=== PATIENT | male | born 1970 | race Two or more races ===

== ENCOUNTER 2017-06-17 10:06 | Inpatient (IN) | payer MEDICAID ==
[~2017-06-17] VITALS: Ht 175.3 cm; Wt 72.6 kg
[2017-06-17] MEDS ORDERED: VANCOMYCIN 1 GM in IV D5W 250 ML IV ONE (10:30)
[2017-06-17] MEDS ORDERED: PIPERACILLIN /TAZOBACTAM 3.375 G in IV D5W 50 ML IV ONE (10:30)
--- NOTE | 2017-06-17 10:30 | NUR ---
The patient was brought in by his to the emergency department for worsening posterior neck cellulitis; severe posterior neck pain 10 over 10 in severity. The patient denies fever or chills am assessment
[2017-06-17 10:39] LABS: BASOPHILS # (AUTO) 0.5 /CMM (0.0-0.2); EOSINOPHILS % (AUTO) 0.2 % (0.0-6.0); HEMATOCRIT 48 % (39-51); LYMPHOCYTES % (AUTO) 3.9 % (20.0-44.0); MEAN CORPUSCULAR HEMOGLOBIN 33 PG (26.0-33.0); MEAN CORPUSCULAR HGB CONC 35 g/dl (31.0-36.0); MEAN CORPUSCULAR VOLUME 92 fL (80-96); MONOCYTES # (AUTO) 2.2 /CMM (0.1-1.30); MONOCYTES % (AUTO) 8.9 % (2.0-12.0); NEUTROPHILS # (AUTO) 21.3 /CMM (1.8-8.9); PLATELET COUNT (AUTO) 306 /CMM (150-450); RDW COEFFICIENT OF VARIATION 11.3 (11.5-15.0); RED BLOOD CELL COUNT(AUTO) 5.25 MIL/uL (4.5-6.0)
--- NOTE | 2017-06-17 10:46 | NUR ---
JORGE SS by the ER physician; with order for septic workup; blood culture done; antibiotics started
[2017-06-17 10:49] LABS: CALCIUM, SERUM 9.8 mg/dL (8.5-10.1); CARBON DIOXIDE 29 mmol/L (21-32); CHLORIDE 94 mmol/L (98-107); CREATININE 0.7 mg/dL (0.6-1.3); GLUCOSE 328 mg/dL (74-106); POTASSIUM 4.1 mmol/L (3.5-5.1); SODIUM SERUM 132 mmol/L (136-145); UREA NITROGEN, BLOOD 10 mg/dL (7-18)
[2017-06-17 10:54] LABS: INR 0.89 (0.87-1.13)
[2017-06-17 10:55] LABS: ALANINE AMINOTRANSFERASE 22 U/L (12-78); ALBUMIN 3.8 g/dL (3.4-5.0); ALKALINE PHOSPHATASE 120 U/L (46-116); ASPARTATE AMINOTRANSFERASE 14 U/L (15-37); BILIRUBIN,DIRECT 0.2 mg/dL (0.0-0.2); TOTAL PROTEIN, SERUM 8.3 g/dL (6.4-8.2)
[2017-06-17 10:57] LABS: TROPONIN I < 0.017 ng/mL (0.00-0.056)
[2017-06-17] MEDS ORDERED: IOHEXOL-300 100 ML VIAL IV ONE (11:11)
[2017-06-17] MEDS ORDERED: IV NS 0.9% 250 ML IV ONE (11:11)
[2017-06-17] MEDS ORDERED: CT SWABBABLE VALVE TRANS SET 1 EA INFUS.SET MC ONE (11:11)
[2017-06-17 11:48] LABS: BAND % (MANUAL) 6 % (0.0-5.0); LYMPHOCYTES % (MANUAL) 4 % (16-48); MONOCYTES % (MANUAL) 6 % (0-11.0); NEUTROPHILS % (MANUAL) 84 (42-76)
[2017-06-17] MEDS ORDERED: ONDANSETRON HCL/PF 4 MG/2 ML VIAL ONE (12:43)
[2017-06-17] MEDS ORDERED: MORPHINE SULFATE INJ 4 MG/ML DISP.SYRIN ONE (12:43)
[2017-06-17] MEDS ORDERED: MORPHINE SULFATE INJ 2 MG/ML DISP.SYRIN IV ONE (13:00)
[2017-06-17] MEDS ORDERED: ONDANSETRON HCL/PF 4 MG/2 ML VIAL IVP ONE (13:00)
--- NOTE | 2017-06-17 13:23 | NUR ---
MS 89
--- NOTE | 2017-06-17 13:40 | NUR ---
REPORT GIVEN AT BS TO BHUPENDRA NAIR BY BHUPENDRA FLANNERY
[2017-06-17 15:30] VITALS: BP 157/93
[2017-06-17] MEDS ORDERED: Z GUARD REMEDY 2 OZ OINT TP PRN (15:30)
[2017-06-17] MEDS ORDERED: ONDANSETRON HCL/PF 4 MG/2 ML VIAL IVP PRN (15:30)
[2017-06-17] MEDS ORDERED: MAGNESIUM HYDROXIDE 30 ML UDC PO PRN (15:30)
[2017-06-17] MEDS ORDERED: ACETAMINOPHEN 325 MG TABLET PO PRN (15:30)
[2017-06-17] MEDS ORDERED: MAG HYDROX/AL HYDROX/SIMETH 30 ML UDC PO PRN (15:30)
--- NOTE | 2017-06-17 15:30 | NUR ---
RN INITIAL NOTE PATIENT ARRIVES TO [facility] IN ACUTE PAIN RATED AT A 10 OUT OF 10 PATIENT APPEAR TO HAVE POSTERIOR NECK INFLAMMATION AND REDNESS, PATIENT STATES HE HASN'T BEEN ABLE TO EAT IN OVER 5 DAY DUE TO INCREASED PAIN , PATIENT STATES HEADACHE AND BLURRED VISION WELL, PATIENT GIVEN HEATING PAD PRESCRIBED IN THE EMERGENCY DEPARTMENT. PATIENT IS ALERT AND ORIENTED X4 AND ABLE TO MAKE NEEDS KNOWN . PATIENT GLUCOSE LEVEL ASSESSED AND APPEARS TO BE SIGNIFICANTLY ELEVATED RN INFORMED PATIENT ABOUT THE ELEVATION IN BLOOD SUGAR. PATIENT STATES HE HAS NO HISTORY OF DIABETES. PATIENT REQUESTING PAIN MEDICATION HOWEVER PATIENT CURRENTLY HAS NO ORDERS RN CONTACTED MD FOR ORDERS AND TO RELY CRITICAL LAB .
[2017-06-17] MEDS ORDERED: FEE PK DOSING 1 MIN EA MC ONE (15:42)
[2017-06-17] MEDS: HYDROCODONE/APAP 5/325MG 1 EACH TABLET PO PRN (15:42)
[2017-06-17] MEDS: CEFTRIAXONE 1 G in IV D5W 50 ML IV SCH (18:20)
[2017-06-17] MEDS: BLOOD SUGAR DIAGNOSTIC 1 EACH STRIP IN SCH ×2 (18:21→21:53)
[2017-06-17] MEDS: MORPHINE SULFATE INJ 4 MG/ML DISP.SYRIN IV PRN (18:21)
--- NOTE | 2017-06-17 18:55 | NUR ---
RN CLOSING NOTE PATIENT IN BED RESTING COMFORTABLE ALL NEEDS ATTENDED PATIENT AMBULATED TO SHOWER PAIN MEDICATION ADMINISTER PER PATIENT REQUEST , PATIENT ANTIBIOTIC HUNG WITHOUT TISSUE PATIENT ORIENTED TO ROOM AND UPDATED ON PLAN OF CARE INITIAL ASSESSMENT PERFORMED PATIENT STABLE AT THIS TIME NO SOB NOTED , PATIENT AT BEDSIDE. RN WILL ENDORSE CONTINUATION OF CARE TO PM RN
--- NOTE | 2017-06-17 19:35 | NUR ---
MS RN NOTES RECEIVED PT IN BED, AWAKE, A/O X4. AND FRIENDS AT BEDSIDE. VERBALLY RESPONSIVE. NO DISTRESS, NO SOB NOTED AT THIS TIME. RESPIRATION IS EVEN AND UNLABORED. IV SITE ON LAC INTACT AND PATENT , NO S/S OF INFILTRATION NOTED. PT IS AMBULATORY. ALL NEEDS ATTENDEE AND MET. COMFORTABLE VERBALIZED. SAFETY PRECAUTIONS OBSERVED. CALL LIGHT WITHIN REACH. WILL CONT TO MONITOR.
[2017-06-17 20:00] VITALS: BP 149/78
[2017-06-17] MEDS: VANCOMYCIN 1.25 GM in IV D5W 500 ML IV SCH (20:45)
[2017-06-17] MEDS: ZOLPIDEM TARTRATE 5 MG TABLET PO PRN (21:54)
[2017-06-18] MEDS: MORPHINE SULFATE INJ 4 MG/ML DISP.SYRIN IV PRN ×4 (00:11→17:56)
[2017-06-18] MEDS: HYDROCODONE/APAP 5/325MG 1 EACH TABLET PO PRN ×2 (03:18→14:36)
[2017-06-18] MEDS: VANCOMYCIN 1.25 GM in IV D5W 500 ML IV SCH ×3 (04:24→21:13)
--- NOTE | 2017-06-18 06:35 | NUR ---
MS RN NOTES PT IN BED, RESTING COMFORTABLY IN BED, AROUSES EASILY. A/O X4. VERBALLY RESPONSIVE. NO DISTRESS, NO SOB NOTED AT THIS TIME. RESPIRATION IS EVEN AND UNLABORED. IV SITE ON LAC INTACT AND PATENT , NO S/S OF INFILTRATION NOTED. PT IS AMBULATORY. ALL NEEDS ATTENDED AND MET. KEPT COMFORTABLE. NO C/O PAIN OR DISCOMFORT AT THIS TIME. SAFETY PRECAUTIONS OBSERVED. CALL LIGHT WITHIN REACH. WILL ENDORSE TO NEXT SHIFT FOR JESUSITA.
[2017-06-18 06:57] LABS: EOSINOPHILS # (AUTO) 0.1 /CMM (0.0-0.7); EOSINOPHILS % (AUTO) 0.3 % (0.0-6.0); HEMATOCRIT 43 % (39-51); HEMOGLOBIN 14.6 g/dL (13.5-17.5); LYMPHOCYTES # (AUTO) 1.5 /CMM (0.8-4.8); LYMPHOCYTES % (AUTO) 6.4 % (20.0-44.0); MEAN CORPUSCULAR HEMOGLOBIN 33 PG (26.0-33.0); MEAN CORPUSCULAR HGB CONC 34 g/dl (31.0-36.0); MEAN CORPUSCULAR VOLUME 95 fL (80-96); MONOCYTES # (AUTO) 1.8 /CMM (0.1-1.30); MONOCYTES % (AUTO) 7.7 % (2.0-12.0); NEUTROPHILS # (AUTO) 19.7 /CMM (1.8-8.9); NEUTROPHILS % (AUTO) 85.6 % (43.0-81.0); PLATELET COUNT (AUTO) 285 /CMM (150-450); RDW COEFFICIENT OF VARIATION 12.1 (11.5-15.0); RED BLOOD CELL COUNT(AUTO) 4.49 MIL/uL (4.5-6.0)
[2017-06-18 07:30] LABS: BILIRUBIN,TOTAL 0.9 mg/dL (0.2-1.0); CREATININE 0.5 mg/dL (0.6-1.3); TOTAL PROTEIN, SERUM 7.1 g/dL (6.4-8.2)
[2017-06-18] MEDS: BLOOD SUGAR DIAGNOSTIC 1 EACH STRIP IN SCH ×6 (08:09→21:24)
[2017-06-18 09:31] LABS: BAND % (MANUAL) 1 % (0.0-5.0); EOSINOPHILS % (MANUAL) 1 % (0-4); LYMPHOCYTES % (MANUAL) 7 % (16-48); MONOCYTES % (MANUAL) 11 % (0-11.0); NEUTROPHILS % (MANUAL) 80 (42-76)
[2017-06-18] MEDS ORDERED: DEXTROSE 50%-WATER 50 ML DISP.SYRIN IV PRN (13:00)
[2017-06-18] MEDS: METFORMIN 500 MG TABLET PO SCH ×2 (14:26→17:56)
[2017-06-18] MEDS: INSULIN REGULAR, HUMAN 100 UNIT/ML 3 ML VIAL SQ PRN (14:31)
[2017-06-18] MEDS: CEFTRIAXONE 1 G in IV D5W 50 ML IV SCH (17:49)
[2017-06-18] MEDS: *INSULIN REGULAR(HUMULIN R)HUM 100 UNIT/ML VIAL SQ PRN ×2 (18:03→21:22)
--- NOTE | 2017-06-18 18:38 | NUR ---
pt medicated for pain as ordered for c/o pain on posterior neck. posterior neck swelling, redness, warm, tender and hard. will do moist warm compresses as ordered. ambulates when able. blood sugars monitored. insulin sliding scale started as ordered and sugar trending down. bed low and locked. call light within reached. will continue to monitor.
[2017-06-18] MEDS ORDERED: MORPHINE SULFATE INJ 2 MG/ML DISP.SYRIN IV STA (19:14)
[2017-06-18] MEDS ORDERED: LIDOCAINE 1%-EPI 1:200,000 SDV 10 ML VIAL IJ ONE (19:30)
--- NOTE | 2017-06-18 19:43 | NUR ---
DR SAINI DID I AND D POSTERIOR NECK AT BEDSIDE. PT TOLERATED PROCEDURE WELL.
[2017-06-18] MEDS ORDERED: MORPHINE SULFATE INJ 4 MG/ML DISP.SYRIN IV ONE (20:00)
--- NOTE | 2017-06-18 20:32 | NUR ---
MS INITIAL RN NOTES PT IN BED, RESTING COMFORTABLY IN BED, AROUSES EASILY. A/O X4. VERBALLY RESPONSIVE. NO DISTRESS, NO SOB NOTED AT THIS TIME. RESPIRATION IS EVEN AND UNLABORED. IV SITE ON LAC INTACT AND PATENT , NO S/S OF INFILTRATION NOTED. PT IS AMBULATORY. ALL NEEDS ATTENDED AND MET. KEPT COMFORTABLE. NO C/O PAIN OR DISCOMFORT AT THIS TIME. SAFETY PRECAUTIONS OBSERVED. CALL LIGHT WITHIN REACH.
[2017-06-19] MEDS: HYDROCODONE/APAP 5/325MG 1 EACH TABLET PO PRN ×5 (01:14→23:32)
[2017-06-19] MEDS: ZOLPIDEM TARTRATE 5 MG TABLET PO PRN ×2 (01:16→23:33)
[2017-06-19] MEDS: VANCOMYCIN 1.25 GM in IV D5W 500 ML IV SCH ×3 (05:17→19:53)
--- NOTE | 2017-06-19 06:50 | NUR ---
RN MS CLOSING NOTES PT STABLE, SEEN BY DR PARVEEN Thompson, WOUND CX COLLECTED . WILL ENDORSE TO AM SHIFT TO F/U ON RESULTS.
[2017-06-19 08:00] VITALS: BP 140/89
[2017-06-19 08:05] LABS: CALCIUM, SERUM 9.5 mg/dL (8.5-10.1); CREATININE 0.5 mg/dL (0.6-1.3); POTASSIUM 3.6 mmol/L (3.5-5.1)
[2017-06-19] MEDS: BLOOD SUGAR DIAGNOSTIC 1 EACH STRIP IN SCH ×4 (08:18→22:40)
[2017-06-19] MEDS: METFORMIN 500 MG TABLET PO SCH ×2 (08:18→17:10)
[2017-06-19] MEDS: INSULIN REGULAR, HUMAN 100 UNIT/ML 3 ML VIAL SQ PRN ×2 (08:29→12:31)
--- NOTE | 2017-06-19 11:39 | NUR ---
MS RN NOTES VANCO IV STARTED. PRIMARY SN TO FOLLOW UP.
[2017-06-19 13:23] LABS: BASOPHILS # (AUTO) 0.1 /CMM (0.0-0.2); BASOPHILS % (AUTO) 0.2 % (0.0-2.0); EOSINOPHILS % (AUTO) 0.2 % (0.0-6.0); HEMATOCRIT 43 % (39-51); HEMOGLOBIN 14.9 g/dL (13.5-17.5); LYMPHOCYTES # (AUTO) 1.4 /CMM (0.8-4.8); LYMPHOCYTES % (AUTO) 5.2 % (20.0-44.0); MEAN CORPUSCULAR HEMOGLOBIN 32 PG (26.0-33.0); MEAN CORPUSCULAR HGB CONC 34 g/dl (31.0-36.0); MEAN CORPUSCULAR VOLUME 94 fL (80-96); MONOCYTES # (AUTO) 1.7 /CMM (0.1-1.30); MONOCYTES % (AUTO) 6.3 % (2.0-12.0); NEUTROPHILS # (AUTO) 23.2 /CMM (1.8-8.9); NEUTROPHILS % (AUTO) 88.1 % (43.0-81.0); PLATELET COUNT (AUTO) 315 /CMM (150-450); RED BLOOD CELL COUNT(AUTO) 4.61 MIL/uL (4.5-6.0); WHITE BLOOD COUNT (AUTO) 26.3 K/uL (4.3-11.0)
[2017-06-19] MEDS ORDERED: IV 1/2NS 1000 ML 1,000 ML IV PRN (13:30)
[2017-06-19] MEDS: CEFTRIAXONE 1 G in IV D5W 50 ML IV SCH (16:10)
--- NOTE | 2017-06-19 16:10 | NUR ---
MS RN NOTES ROCEPHIN IV STARTED. PRIMARY NURSE TO FOLLOW UP.
[2017-06-19] MEDS: LACTOBACILLUS RHAMNOSUS GG 1 EACH CAP.SPRINK PO SCH (17:10)
--- NOTE | 2017-06-19 19:20 | NUR ---
MS COLTON CLOSING NOTES, PATIENT ALERT X4, AMBULATING, CALL LIGHT IN REACH AND ALL NEEDS ATTENDED. REQUESTED NORCO 5MG X2 WITH BURNING RADIATING PAIN IN HIS NECK. NO SOB. WILL ENDORSE TO NEXT GEOMETRICIAN TO CONTINUE TO MONITOR.
[2017-06-19] MEDS: MORPHINE SULFATE INJ 4 MG/ML DISP.SYRIN IV PRN (19:58)
[2017-06-19 20:00] VITALS: BP 137/91
--- NOTE | 2017-06-19 22:00 | NUR ---
PT SEEN BY HALINA WOUND NURSE WITH ORDER FOR KATY GIUSEPPE. ORDER CARRIED OUT , OLD DRESSING REMOVED, AND NEW DRESSING APPLIED.
[2017-06-19] MEDS: *INSULIN REGULAR(HUMULIN R)HUM 100 UNIT/ML VIAL SQ PRN (22:45)
[2017-06-19] MEDS ORDERED: DAKINS QUARTER STRENGTH (0.125%) 480 ML BOTTLE ONE (22:59)
[2017-06-19] MEDS: DAKINS QUARTER STRENGTH (0.125%) 480 ML BOTTLE TOP SCH (23:06)
[2017-06-20] MEDS: VANCOMYCIN 1.25 GM in IV D5W 500 ML IV SCH ×3 (04:43→20:49)
[2017-06-20] MEDS: HYDROCODONE/APAP 5/325MG 1 EACH TABLET PO PRN ×5 (04:57→23:56)
[2017-06-20 07:12] LABS: CALCIUM, SERUM 8.9 mg/dL (8.5-10.1); CREATININE 0.5 mg/dL (0.6-1.3); POTASSIUM 3.2 mmol/L (3.5-5.1)
--- NOTE | 2017-06-20 07:53 | NUR ---
RN NOTES RECEIVED PT IN BED, RESTING COMFORTABLY A/O X4. VERBALLY RESPONSIVE, AMBULATORY. NOT IN ANY FORM OF DISTRESS, NO SOB, RESPIRATION IS EVEN AND UNLABORED. DENIES PAIN OR DISCOMFORT AT THIS TIME. WOUND DRESSED TO POSTERIOR NECK BY PREVIOUS SHIFT. IV SITE TO LAC INTACT AND PATENT. SAFETY PRECAUTIONS OBSERVED. CALL LIGHT WITHIN REACH. WILL CONTINUE TO MONITOR.
[2017-06-20 08:00] VITALS: BP 140/89
[2017-06-20] MEDS: METFORMIN 500 MG TABLET PO SCH ×2 (08:36→17:02)
[2017-06-20] MEDS: LACTOBACILLUS RHAMNOSUS GG 1 EACH CAP.SPRINK PO SCH ×2 (08:36→17:02)
[2017-06-20] MEDS: BLOOD SUGAR DIAGNOSTIC 1 EACH STRIP IN SCH ×4 (08:37→21:02)
[2017-06-20] MEDS: DAKINS QUARTER STRENGTH (0.125%) 480 ML BOTTLE TOP SCH (08:38)
[2017-06-20 08:53] LABS: BASOPHILS % (AUTO) 0.2 % (0.0-2.0); EOSINOPHILS # (AUTO) 0.1 /CMM (0.0-0.7); EOSINOPHILS % (AUTO) 0.8 % (0.0-6.0); HEMATOCRIT 44 % (39-51); LYMPHOCYTES # (AUTO) 1.1 /CMM (0.8-4.8); LYMPHOCYTES % (AUTO) 7.8 % (20.0-44.0); MEAN CORPUSCULAR HEMOGLOBIN 32 PG (26.0-33.0); MEAN CORPUSCULAR HGB CONC 34 g/dl (31.0-36.0); MEAN CORPUSCULAR VOLUME 94 fL (80-96); MONOCYTES # (AUTO) 1.5 /CMM (0.1-1.30); NEUTROPHILS % (AUTO) 80.2 % (43.0-81.0); PLATELET COUNT (AUTO) 329 /CMM (150-450); RED BLOOD CELL COUNT(AUTO) 4.67 MIL/uL (4.5-6.0); WHITE BLOOD COUNT (AUTO) 13.7 K/uL (4.3-11.0)
[2017-06-20] MEDS ORDERED: PIPERACILLIN /TAZOBACTAM 4.5 G in IV D5W 50 ML IV SCH (09:00)
[2017-06-20] MEDS: PIPERACILLIN /TAZOBACTAM 3.375 G in IV D5W 50 ML IV SCH ×3 (09:12→22:34)
[2017-06-20] MEDS: *INSULIN REGULAR(HUMULIN R)HUM 100 UNIT/ML VIAL SQ PRN ×2 (09:13→12:19)
[2017-06-20] MEDS: glipiZIDE 5 MG TABLET PO SCH ×2 (09:31→17:02)
[2017-06-20] MEDS ORDERED: POTASSIUM CHLORIDE 20 MEQ TAB.PRT.SR PO ONE (11:00)
--- NOTE | 2017-06-20 11:59 | NUR ---
MS/RN NOTES PATIENT POSITIVE FOR STAPH COCC OF NECK WOUND. PATIENT RECEIVING SCHEDULED ANTIBIOTICS.
[2017-06-20] MEDS: INSULIN REGULAR, HUMAN 100 UNIT/ML 3 ML VIAL SQ PRN ×2 (18:23→21:11)
--- NOTE | 2017-06-20 19:00 | NUR ---
RN NOTES A/O X 4 AWAKE IN BED, PT IN STABLE CONDITION, NO S/S OF DISTRESS. SAFETY MEASURES ARE IN PLACE, CALL LIGHT IS IN REACH. WILL CONTINUE TO MONITOR.
--- NOTE | 2017-06-20 19:14 | NUR ---
MS/RN NOTES PATIENT RESTING IN BED COMFORTABLY, ALL DUE MEDICATIONS GIVEN, ALL NEEDS MET AND ATTENDED, WOUND CARE OF THE POST NECK PERFORMED ORDERED. IV ANTIBIOTICS GIVEN FAS SCHEDULED. PATIENT AMBULATORY AND INDEPENDENT IN SELF CARE. DIABETES MANAGEMENT WITH ACHS ACCUCHEKCS AND HYPOGLYCEMICS. PATIENT COMPLIANT WITH CARE, INSTRUCTED ON NEW DIABETES DISEASE, CARE AND MANAGEMENT. PAIN MANAGED WITH NORCO EVERY 4 HOURS PRN. WILL ENDORSE CARE TO TELEVISION OPERATOR FOR JESUSITA
[2017-06-20 20:00] VITALS: BP 136/95
[2017-06-20] MEDS: ZOLPIDEM TARTRATE 5 MG TABLET PO PRN (20:55)
--- NOTE | 2017-06-20 21:15 | NUR ---
MS RN NOTES ACCUCHECK WAS TAKEN 189 MG/DL PT WAS GIVEN 3 UNITS OF INSULIN R ORDERED WITNESSED BY 1 RN
[2017-06-21] MEDS: *INSULIN REGULAR(HUMULIN R)HUM 100 UNIT/ML VIAL SQ PRN (02:02)
[2017-06-21] MEDS: PIPERACILLIN /TAZOBACTAM 3.375 G in IV D5W 50 ML IV SCH ×2 (03:34→08:08)
[2017-06-21 04:00] VITALS: BP 137/89
[2017-06-21] MEDS: HYDROCODONE/APAP 5/325MG 1 EACH TABLET PO PRN ×3 (04:00→12:11)
[2017-06-21] MEDS: VANCOMYCIN 1.25 GM in IV D5W 500 ML IV SCH (04:02)
--- NOTE | 2017-06-21 06:31 | NUR ---
MS RN CLOSING NOTES PT COMFORTABLY ASLEEP AND EASILY AWAKEN, TOLERATING ROOM AIR 02 SAT 99% IN STABLE CONDITION. RESPIRATION EVEN AND UNLABORED. KEPT CLEAN AND DRY AND COMFORTABLE, ALL NURSING CARE RENDERED. NEEDS ATTENDED AND ANTICIPATED, FREQUENT VISUAL CHECK DONE FOR SAFETY EVERY 2 HOURS. TX ORDERED, GOOD SKIN CARE PROVIDED. ON LOW BED AT ALL TIMES TO ENSURE SAFETY. SAFE HAZARD FREE ENVIRONMENT PROVIDED. CALL LIGHT WITHIN EASY TO REACH. WILL ENDORSE NEXT SHIFT CONTINUITY OF CARE.
[2017-06-21 06:53] LABS: CALCIUM, SERUM 8.9 mg/dL (8.5-10.1); CREATININE 0.6 mg/dL (0.6-1.3); POTASSIUM 3.7 mmol/L (3.5-5.1)
--- NOTE | 2017-06-21 07:15 | NUR ---
RN OPENING NOTES RECEIVED PT. IN BED A&OX4. BREATHING UNLABORED, AND EVENLY ON ROOM AIR. NO S/S OF ACUTE DISTRESS. IV FLUIDS RUNNING AT 125 ML/HR. BED IS IN LOWEST AND LOCKED POSITION. 2 SIDE RAILS UP, AND INSTRUCTED PT. TO USE CALL LIGHT FOR ASSISTANCE. ALL NEEDS MET. WILL CONTINUE TO ASSESS AND MONITOR.
[2017-06-21] MEDS: BLOOD SUGAR DIAGNOSTIC 1 EACH STRIP IN SCH ×2 (07:26→12:05)
[2017-06-21] MEDS: glipiZIDE 5 MG TABLET PO SCH (07:27)
[2017-06-21] MEDS: INSULIN REGULAR, HUMAN 100 UNIT/ML 3 ML VIAL SQ PRN ×2 (07:30→12:07)
[2017-06-21 08:00] VITALS: BP 140/93
[2017-06-21] MEDS: LACTOBACILLUS RHAMNOSUS GG 1 EACH CAP.SPRINK PO SCH (08:07)
[2017-06-21] MEDS: METFORMIN 500 MG TABLET PO SCH (08:07)
[2017-06-21] MEDS: DAKINS QUARTER STRENGTH (0.125%) 480 ML BOTTLE TOP SCH (08:08)
[2017-06-21] MEDS ORDERED: SULFAMETH/TRIMETH 800/160 MG 1 UDTAB TABLET PO SCH (12:16)
--- NOTE | 2017-06-21 14:00 | NUR ---
RN NOTES WOUND CARE PERFORMED TO POSTERIOR NECK WOUND PER MD ORDERS. PT. TOLERATED PROCEDURE WELL.
--- NOTE | 2017-06-21 16:10 | NUR ---
ADULT SCHOOL TEACHER NOTES PT. WAS DISCHARGED IN MEDICALLY STABLE CONDITION. PT. GOING HOME WITH FAMILY BY PRIVATE CARE. DISCHARGE INSTRUCTIONS, AND EDUCATION WAS PROVIDED, AND PT. VERBALIZED UNDERSTANDING. IV WAS REMOVED, AND ID BAND WITHOUT COMPLICATIONS. BELONGINGS LIST WAS CHECKED, AND SIGNED. NEW MEDICATION PRESCRIPTION LIST WAS PROVIDED, AND EXPLAINED TO PT., AND PT. VERBALIZED UNDERSTANDING. DIABETES EDUCATION WAS PROVIDED AT BEDSIDE, AND PT. VERBALIZED UNDERSTANDING. DISCHARGE PACKET WAS GIVEN, AND ALL QUESTIONS ANSWERED.
== END 2017-06-21 16:45 | disposition home or self-care (01) | DRG 364 ==
LOC: ER 10:10 → MEDSG1 13:53
PROVIDERS: ADMIT Internal Medicine; ATTEND Internal Medicine
PROC: 0W963ZZ Drainage of Neck, Percutaneous Approach (ICD-10-PCS; principal; 2017-06-18)
DX: L03.221 Cellulitis of neck (principal); E87.1 Hypo-osmolality and hyponatremia; E88.09 Other disorders of plasma-protein metabolism, not elsewhere classified; F17.210 Nicotine dependence, cigarettes, uncomplicated; D72.829 Elevated white blood cell count, unspecified; E11.9 Type 2 diabetes mellitus without complications; L02.11 Cutaneous abscess of neck; M60.9 Myositis, unspecified
CPT/HCPCS: 36415; 70491-TC; 71045-TC; 80048-TC; 80053-TC; 80076-TC; 80202-TC; 82962-TC; 83605-TC; 84484-TC; 85025-TC; 85730-TC; 87040-TC; 87070-TC; 87081-TC; A4606; A6253; A6402; A6403; J0696; J1815; J2270; J2405; J2543; J3370; J3490; J7040; J7050; J7060; Q9967; Z7610